=== PATIENT | female | born 1960 | race Caucasian/White ===

== ENCOUNTER 2018-04-10 14:05 | Emergency (ER) | payer OTHER, SELFPAY ==
[2018-04-10 14:14] VITALS: BP 120/78; PULSE 68; RESP 12; TEMP 36.2; O2SAT 99
--- NOTE | 2018-04-10 14:32 | PC.NURSE ---
pt has splint placed yesterday around 0200. pt removed splint (where it has dent) pt having pain. pt wants to wear a boot instead.
--- NOTE | 2018-04-10 14:53 | ED.LOWEXIN ---
HPI - Extremity Injury (Lower) General Chief Complaint: Extremity Injury, Lower Stated Complaint: BROKE LT ANKLE Time Seen by Provider: 04/10/18 14:48 Source: patient Mode of arrival: ambulatory Limitations: no limitations History of Present Illness HPI Narrative: Patient is a 57-year-old female here for evaluation of pain and swelling to her left foot. Just over 24 hr ago she fell injuring her left ankle. Was seen in outside facility was diagnosed with a left distal fibular fracture. Was placed in a removable posterior splint and crutches. She states that since then she has had swelling in the splint has been pushing into her leg. She feels much better now that the splint is off. Review of Systems Constitutional Denies fever(s) Musculoskeletal Comments: Left ankle pain and swelling Integumentary/Breasts Comments: Bruising around the left great toe Neurologic Comments: Some tingling left foot Hematologic/Lymphatic Comments: Not on anticoagulation PFSH Medical History Healthy adult (Acute) Social History marital status: lives independently: Yes Exam Initial Vital Signs Initial Vital Signs: Vital Signs Temperature 97.2 F L 04/10/18 14:14 Pulse Rate 68 04/10/18 14:14 Respiratory Rate 12 04/10/18 14:14 Blood Pressure 120/78 04/10/18 14:14 Pulse Oximetry 99 04/10/18 14:14 Const General: cooperative, healthy appearing, comfortable, well developed, well groomed and No acute distress Orientation: alert, awake and oriented x3 HENMT Head: normal to inspection and normocephalic Cardio Pulses: dorsalis pedis present on the left Skin Other: Some bruising around the left great toe Neuro Other: Sensation intact left lower extremity Extrem Other: Swelling around the left lower extremity with tenderness to palpation along the distal fibula Psych Appearance: grossly normal and well kempt Course Vital Signs - 8 hr 04/10/18 14:14 Temperature 97.2 F L Pulse Rate 68 Respiratory Rate 12 Blood Pressure 120/78 Pulse Oximetry 99 MDM - Extremity Injury (Lower) Medical Records Attestation: I reviewed the patient's medical records. MDM Narrative Medical decision making narrative: We were able to obtain the records from the outside facility which does show a isolated distal fibula fracture of the left ankle. I suspect that her discomfort is secondary to the positioning of the splint. She does have crutches. Will send home with a walking boot. She was instructed to put minimal pressure on her left lower extremity. She does have a follow-up with Orthopedics on Thursday of next week. She was given return precautions. She denied the need for any pain medication. She expressed understanding and agreement plan. Discharge Plan Departure Patient Disposition: Home Clinical Impression: Fracture of distal end of fibula Instructions: How to Use Crutches Activity Restrictions/Additional Instructions: Recommend that you use your crutches and put minimal pressure if any on your left lower extremity keep your scheduled follow-up appointment. Return to the emergency department for any new or worsening symptoms. Contact your primary care doctor for follow-up.
== END 2018-04-10 15:05 | disposition home or self-care (01) ==
PROVIDERS: Emergency Provider Emergency Medicine; PCP Internal Medicine
DX: S82.832A Other fracture of upper and lower end of left fibula, initial encounter for closed fracture (principal); W19.XXXA Unspecified fall, initial encounter
CPT/HCPCS: 99282; 99283

== ENCOUNTER 2018-09-02 16:51 | Emergency (ER) | payer OTHER, SELFPAY ==
[2018-09-02 16:59] VITALS: BP 161/87; PULSE 68; RESP 15; TEMP 37.2; O2SAT 100; BMI 24.5
--- NOTE | 2018-09-02 17:12 | ED.SOB ---
HPI - SOB/Dyspnea General Chief Complaint: Shortness of Breath/Dyspnea Stated Complaint: Congestion and cough, blood when blowing nose Time Seen by Provider: 09/02/18 17:03 Source: patient and family Mode of arrival: ambulatory Limitations: no limitations History of Present Illness 57-year-old female comes the emergency department with complaint of shortness of breath, chest congestion and cough. Patient states that she has had productive sputum with agree grayish discoloration she has not had any fevers. She denies any chest pressure. Patient denies any nausea no vomiting no other GI or urinary symptoms other than some mild diarrhea. Patient has not had any swelling in her lower extremities. She has not had any nasal pressure or pain she did note some blood when she blew her nose this morning but not any other episodes. Patient started with nasal congestion a week ago and it seemed to move to her lungs. She does smoke daily. She has been treated for lymphoma and has been in remission since 5 years prior. She takes medication for hypertension and denies other medical issues. She has had a hysterectomy but denies any other surgical care. She does not normally use inhalers or required breathing treatments in the past. Related Data Home Medications Medication Instructions Recorded Confirmed atenolol 25 mg PO DAILY 09/02/18 09/02/18 ovymxiglsgvq-nwkx-xodpj acid 1 tab PO DAILY 09/02/18 09/02/18 [Centrum] Previous Rx's Medication Instructions Recorded albuterol sulfate 2 puff INHALATION Q4-6H PRN #8 gram 09/02/18 azithromycin 250 mg PO DAILY 5 Days tab 09/02/18 prednisone 50 mg PO DAILY #3 tab 09/02/18 Review of Systems Review of Systems ROS Unobtainable: All systems reviewed & are unremarkable except as noted in HPI and below Constitutional Denies chills, Denies fever(s), Denies lethargy and Denies weakness ENT Ears, Nose, Mouth, and Throat: Reports other (Blood when blowing nose x1) Cardiovascular Denies chest pain, Denies edema, Denies leg edema, Denies dyspnea, Reports dyspnea on exertion and Denies orthopnea Respiratory Reports change in phlegm color, Reports chest congestion, Reports cough, Denies hemoptysis, Reports excessive phlegm production, Denies pain on inspiration, Denies pain with cough, Denies dyspnea, Reports dyspnea on exertion, Denies stridor and Reports wheezing Gastrointestinal Gastrointestinal: Denies abdominal pain, Denies change in bowel habits, Reports diarrhea (A couple times), Denies nausea and Denies vomiting Genitourinary Denies hematuria, Denies dysuria, Denies flank pain, Denies urinary incontinence and Denies urinary urgency Neurologic Denies weakness Allergic/Immunologic Reports wheezing [facility] Medical History (Updated 09/02/18 @ 18:01 by Ashly Lacy DO) Healthy adult (Acute) H/O: hysterectomy (Chronic) Hypertension (Chronic) Social History marital status: lives independently: Yes Smoking Status: Current every day smoker Social History marital status: lives independently: Yes Smoking Status: Current every day smoker Exam Narrative Exam Narrative: GEN: well nourished, well appearing female, alert and oriented x 3, patient appears to be in no acute distress. HEENT: Atraumatic, pupils are equal round reactive to light, extraocular movements are intact, nares are clear, TMs are clear with no fluid, there is no conjunctival pallor. Throat is clear without any exudates, erythema, tonsillar enlargement or uvular deviation HEART: Regular rate and rhythm without murmur, clicks, rubs. LUNGS:Lungs are coarse bilaterally, she has mild wheeze on the right upper chest with expiration, no rales, no crackles, chest moves symmetrically. No tachypnea or accessory muscle use. She speaks in full sentences. ABD:bowel sounds normal, soft, non-tender, no guarding, rebound, rigidity, no masses noted, no hepatosplenomegaly :No CVA tenderness MSCL: Non-tender, no muscle atrophy, muscles strength 5/5 upper and lower extremities, full range of motion, normal gait NEURO:CN 2-12 intact, sensation normal Initial Vital Signs Initial Vital Signs: Vital Signs Temperature 98.9 F 09/02/18 16:59 Pulse Rate 68 09/02/18 16:59 Respiratory Rate 15 09/02/18 16:59 Blood Pressure 161/87 H 09/02/18 16:59 Pulse Oximetry 100 09/02/18 16:59 Course Orders Ordered: ED Orders 09/02/18 17:11 XR chest 2V Stat Discontinued Medications Albuterol/Ipratropium (Duoneb) 3 ml INH NOW ONE Stop: 09/02/18 17:13 Last Admin: 09/02/18 17:34 Dose: 3 ml Vital Signs - 8 hr 09/02/18 16:59 09/02/18 17:35 09/02/18 17:50 Temperature 98.9 F Pulse Rate 68 73 75 Respiratory Rate 15 14 15 Blood Pressure 161/87 H Blood Pressure [Right Arm] 129/74 Pulse Oximetry 100 98 95 MDM - SOB/Dyspnea Imaging Data Chest x-ray: Radiologist's impression: [address] [address] XRay Report Signed Patient: JUSTIN STONER MMR#: [id number] : 9Acct:[id number] Age/Sex: 57 / FDate of Service: 09/02/18 Loc: ED Accession Number: [id number] Procedure: XR chest 2V Ordering Provider: Ashly Lacy D.O. PROCEDURE: XR CHEST 2V INDICATIONS: sob, cough, productive cifuentes/brown sputum, tob abuse TECHNIQUE: 2 views of the chest were acquired. COMPARISON: None. FINDINGS: Surgical changes and devices: None. Lungs and pleura: Lungs are clear. No pleural effusions or pneumothorax. Mediastinum: Mediastinal contours are normal. Heart size is normal. Bones and chest wall: No suspicious bony abnormalities. Soft tissues appear unremarkable. IMPRESSION: No acute cardiopulmonary disease process. Dictated by: Ashly Franklin MD, PhD on 09/02/2018 at 17:42 Approved by: Ashly Franklin MD, PhD on 09/02/2018 at 17:43 [facility] Narrative Medical decision making narrative: Patient feeling better after albuterol, given inhaler with spacer and training. Plan for steroids and short course of antibiotics. Discharge Plan Departure Patient Disposition: Home Clinical Impression: Bronchitis Discharge Date/Time: 09/02/18 18:19 Interventions: ED Discharge Assessment Last Done: 09/02/18 18:18 Instructions: DI for Acute Bronchitis Activity Restrictions/Additional Instructions: Follow-up with your primary physician in the next 2-3 days. Call for an appointment. Take steroids once daily until gone. Take antibiotics until gone. May use inhaler 1-2 puffs every 4 hours as needed for symptoms. Return to the emergency department for fevers greater than 100.4 F, new shortness of breath, chest pain, passing out, persistent vomiting, black or bloody stools or other new or concerning symptoms. Prescriptions: New prednisone 50 mg tablet 50 mg PO DAILY Qty: 3 RF: 0 azithromycin 250 mg tablet 250 mg PO DAILY 5 Days RF: 0 albuterol sulfate 90 mcg/actuation HFA aerosol inhaler 2 puff INHALATION Q4-6H PRN (Reason: shortness of breath or wheezing) Qty: 8 RF: 0 No Action atenolol 25 mg tablet 25 mg PO DAILY RF: 0 Centrum 18-400 mg-mcg Tablet 1 tab PO DAILY RF: 0 Referrals: Randi Flanagan MD [Primary Care Provider] - Stand Alone Forms: Work Release Note
--- NOTE | 2018-09-02 17:17 | ED_ITS ---
HPI - SOB/Dyspnea General Chief Complaint: Shortness of Breath/Dyspnea Stated Complaint: Congestion and cough, blood when blowing nose Time Seen by Provider: 09/02/18 17:03 Source: patient and family Mode of arrival: ambulatory Limitations: no limitations History of Present Illness 57-year-old female comes the emergency department with complaint of shortness of breath, chest congestion and cough. Patient states that she has had productive sputum with agree grayish discoloration she has not had any fevers. She denies any chest pressure. Patient denies any nausea no vomiting no other GI or urinary symptoms other than some mild diarrhea. Patient has not had any swelling in her lower extremities. She has not had any nasal pressure or pain she did note some blood when she blew her nose this morning but not any other episodes. Patient started with nasal congestion a week ago and it seemed to move to her lungs. She does smoke daily. She has been treated for lymphoma and has been in remission since 5 years prior. She takes medication for hypertension and denies other medical issues. She has had a hysterectomy but denies any other surgical care. She does not normally use inhalers or required breathing treatments in the past. Related Data Home Medications Medication Instructions Recorded Confirmed atenolol 25 mg PO DAILY 09/02/18 09/02/18 ajlgygyygoyn-dfnq-rdzjm acid 1 tab PO DAILY 09/02/18 09/02/18 [Centrum] Previous Rx's Medication Instructions Recorded albuterol sulfate 2 puff INHALATION Q4-6H PRN #8 gram 09/02/18 azithromycin 250 mg PO DAILY 5 Days tab 09/02/18 prednisone 50 mg PO DAILY #3 tab 09/02/18 Review of Systems Review of Systems ROS Unobtainable: All systems reviewed & are unremarkable except as noted in HPI and below Constitutional Denies chills, Denies fever(s), Denies lethargy and Denies weakness ENT Ears, Nose, Mouth, and Throat: Reports other (Blood when blowing nose x1) Cardiovascular Denies chest pain, Denies edema, Denies leg edema, Denies dyspnea, Reports dyspnea on exertion and Denies orthopnea Respiratory Reports change in phlegm color, Reports chest congestion, Reports cough, Denies hemoptysis, Reports excessive phlegm production, Denies pain on inspiration, Denies pain with cough, Denies dyspnea, Reports dyspnea on exertion, Denies stridor and Reports wheezing Gastrointestinal Gastrointestinal: Denies abdominal pain, Denies change in bowel habits, Reports diarrhea (A couple times), Denies nausea and Denies vomiting Genitourinary Denies hematuria, Denies dysuria, Denies flank pain, Denies urinary incontinence and Denies urinary urgency Neurologic Denies weakness Allergic/Immunologic Reports wheezing [facility] Medical History (Updated 09/02/18 @ 18:01 by Ashly Lacy DO) Healthy adult (Acute) H/O: hysterectomy (Chronic) Hypertension (Chronic) Social History marital status: lives independently: Yes Smoking Status: Current every day smoker Social History marital status: lives independently: Yes Smoking Status: Current every day smoker Exam Narrative Exam Narrative: GEN: well nourished, well appearing female, alert and oriented x 3, patient appears to be in no acute distress. HEENT: Atraumatic, pupils are equal round reactive to light, extraocular movements are intact, nares are clear, TMs are clear with no fluid, there is no conjunctival pallor. Throat is clear without any exudates, erythema, tonsillar enlargement or uvular deviation HEART: Regular rate and rhythm without murmur, clicks, rubs. LUNGS:Lungs are coarse bilaterally, she has mild wheeze on the right upper chest with expiration, no rales, no crackles, chest moves symmetrically. No tachypnea or accessory muscle use. She speaks in full sentences. ABD:bowel sounds normal, soft, non-tender, no guarding, rebound, rigidity, no masses noted, no hepatosplenomegaly :No CVA tenderness MSCL: Non-tender, no muscle atrophy, muscles strength 5/5 upper and lower extremities, full range of motion, normal gait NEURO:CN 2-12 intact, sensation normal Initial Vital Signs Initial Vital Signs: Vital Signs Temperature 98.9 F 09/02/18 16:59 Pulse Rate 68 09/02/18 16:59 Respiratory Rate 15 09/02/18 16:59 Blood Pressure 161/87 H 09/02/18 16:59 Pulse Oximetry 100 09/02/18 16:59 Course Orders Ordered: ED Orders 09/02/18 17:11 XR chest 2V Stat Discontinued Medications Albuterol/Ipratropium (Duoneb) 3 ml INH NOW ONE Stop: 09/02/18 17:13 Last Admin: 09/02/18 17:34 Dose: 3 ml Vital Signs - 8 hr 09/02/18 16:59 09/02/18 17:35 09/02/18 17:50 Temperature 98.9 F Pulse Rate 68 73 75 Respiratory Rate 15 14 15 Blood Pressure 161/87 H Blood Pressure [Right Arm] 129/74 Pulse Oximetry 100 98 95 MDM - SOB/Dyspnea Imaging Data Chest x-ray: Radiologist's impression: [address] [address] XRay Report Signed Patient: JUSTIN STONER MMR#: [id number] : 9Acct:[id number] Age/Sex: 57 / FDate of Service: 09/02/18 Loc: ED Accession Number: [id number] Procedure: XR chest 2V Ordering Provider: Ashly Lacy D.O. PROCEDURE: XR CHEST 2V INDICATIONS: sob, cough, productive cifuentes/brown sputum, tob abuse TECHNIQUE: 2 views of the chest were acquired. COMPARISON: None. FINDINGS: Surgical changes and devices: None. Lungs and pleura: Lungs are clear. No pleural effusions or pneumothorax. Mediastinum: Mediastinal contours are normal. Heart size is normal. Bones and chest wall: No suspicious bony abnormalities. Soft tissues appear unremarkable. IMPRESSION: No acute cardiopulmonary disease process. Dictated by: Ashly Franklin MD, PhD on 09/02/2018 at 17:42 Approved by: Ashly Franklin MD, PhD on 09/02/2018 at 17:43 [facility] Narrative Medical decision making narrative: Patient feeling better after albuterol, given inhaler with spacer and training. Plan for steroids and short course of antibiotics. Discharge Plan Departure Patient Disposition: Home Clinical Impression: Bronchitis Discharge Date/Time: 09/02/18 18:19 Interventions: ED Discharge Assessment Last Done: 09/02/18 18:18 Instructions: DI for Acute Bronchitis Activity Restrictions/Additional Instructions: Follow-up with your primary physician in the next 2-3 days. Call for an appointment. Take steroids once daily until gone. Take antibiotics until gone. May use inhaler 1-2 puffs every 4 hours as needed for symptoms. Return to the emergency department for fevers greater than 100.4 F, new shortness of breath, chest pain, passing out, persistent vomiting, black or bloody stools or other new or concerning symptoms. Prescriptions: New prednisone 50 mg tablet 50 mg PO DAILY Qty: 3 RF: 0 azithromycin 250 mg tablet 250 mg PO DAILY 5 Days RF: 0 albuterol sulfate 90 mcg/actuation HFA aerosol inhaler 2 puff INHALATION Q4-6H PRN (Reason: shortness of breath or wheezing) Qty: 8 RF: 0 No Action atenolol 25 mg tablet 25 mg PO DAILY RF: 0 Centrum 18-400 mg-mcg Tablet 1 tab PO DAILY RF: 0 Referrals: Randi Flanagan MD [Primary Care Provider] - Stand Alone Forms: Work Release Note
--- NOTE | 2018-09-02 17:17 | PC.NURSE ---
today with nose bleed after blowing nose. states, has been expose with pneumonia.
[2018-09-02] MEDS: ALBUTEROL/IPRATROPIUM 3 ML AMPUL INH (17:34)
[2018-09-02 17:35] VITALS: PULSE 73; RESP 14; O2SAT 98
[2018-09-02 17:50] VITALS: BP 129/74; PULSE 75; RESP 15; O2SAT 95
== END 2018-09-02 18:19 | disposition home or self-care (01) ==
PROVIDERS: Emergency Provider Emergency Medicine; PCP Internal Medicine
DX: J40 Bronchitis, not specified as acute or chronic (principal)
CPT/HCPCS: 71046; 94640; 99282; 99283

== ENCOUNTER → 2019-12-04 12:11 | Outpatient (CLI) | payer OTHER, SELFPAY | PROVIDERS: PCP Internal Medicine; Visit Provider Physician Assistant | DX: N60.09 Solitary cyst of unspecified breast (principal) | CPT/HCPCS: 87070; 87147; 87205 ==

== ENCOUNTER → 2022-03-24 13:04 | Outpatient (CLI) | payer BC, SELFPAY ==
--- NOTE | 2022-03-24 | DI.MG.S_ITS ---
BILATERAL DIGITAL DIAGNOSTIC MAMMOGRAM 3D/2D SHORT-TERM FOLLOW-UP: 03/24/2022 CLINICAL: Short term follow up of the right breast, due for bilateral imaging. Comparison is made to exams dated: 04/14/2019 mammogram and 03/07/2019 mammogram - outside location. There are scattered areas of fibroglandular density in both breasts (category b / 25%-50% glandular tissue). There is an oval equal density focal asymmetry in the right breast at 3 o'clock posterior depth. This is less prominent and decreased in size and correlates with skin marker. This was reported by the patient as sebaceous cyst that has undergone interval incision/drainage. No other significant masses, calcifications, or other findings are seen in either breast. IMPRESSION: INCOMPLETE: NEEDS ADDITIONAL IMAGING EVALUATION The oval equal density focal asymmetry in the right breast most likely is a skin lesion and is indeterminate. An ultrasound is recommended for further evaluation and is scheduled to immediately follow this examination. This exam was interpreted at Station ID: [id number]. NOTE: For mammograms, a report in lay terms will be sent to the patient. Approximately 15% of breast malignancies will not be visualized mammographically. In the management of a palpable breast mass, a negative mammogram must not discourage biopsy of a clinically suspicious lesion. Electronically Signed By: Shravan Madison M.D. aty/:03/24/2022 14:50:04 ACR BI-RADS Category 0: Incomplete 3340F
--- NOTE | 2022-03-24 | DI.US.S_ITS ---
ULTRASOUND OF RIGHT BREAST AND AXILLA: 03/24/2022 CLINICAL: Patient returns today to evaluate two focal asymmetries in the right breast. Comparison is made to exams dated: 03/24/2022 mammogram - [facility], 04/14/2019 mammogram, 03/07/2019 mammogram, and 04/14/2019 ultrasound - outside location. Color flow and real-time ultrasound of the right breast axilla were performed. Kumar scale images of the real-time examination were reviewed. There is a 0.7 cm x 0.2 cm x 0.6 cm oval cyst within the skin of the right breast at 2 o'clock 14 cm from the nipple. This oval cyst is hypoechoic. This abnormality is decreased in size and less prominent. Color flow imaging demonstrates that there is no vascularity present. There also is a stable 1.8 cm x 0.7 cm x 1.3 cm wider than tall oval mass with a circumscribed margin in the right breast at 3:30 o'clock posterior depth 8 cm from the nipple. This oval mass is hyperechoic with no posterior acoustic shadowing or enhancement. Color flow imaging demonstrates that there is an adjacent vascularity. No significant abnormalities were seen sonographically in the right axilla. IMPRESSION: BENIGN There is no sonographic evidence of malignancy. The 0.7 cm x 0.2 cm x 0.6 cm oval cyst within the skin of the right breast at 2 o'clock is consistent with a sebaceous cyst and is benign. The 1.8 cm x 0.7 cm x 1.3 cm wider than tall oval mass in the right breast at 3:30 o'clock posterior depth has remained stable for over two years and is benign. It most likely is a lipoma. A 1 year screening mammogram is recommended. Findings and recommendations were conveyed to the patient during today's evaluation. This exam was interpreted at Station ID: [id number]. Electronically Signed By: Shravan Madison M.D. at/:03/24/2022 14:56:19 letter sent: Normal Exam Ultrasound BI-RADS: 2 Benign
== END ==
PROVIDERS: PCP Nurse Practitioner; Referring Provider Nurse Practitioner; Visit Provider Nurse Practitioner
DX: R92.8 Other abnormal and inconclusive findings on diagnostic imaging of breast (principal); N60.01 Solitary cyst of right breast; N63.14 Unspecified lump in the right breast, lower inner quadrant
CPT/HCPCS: 76642; 77066; G0279

== ENCOUNTER 2022-08-15 14:08 | Emergency (ER) | payer OTHER, SELFPAY ==
[2022-08-15 14:10] VITALS: BP 190/91; PULSE 84; RESP 18; TEMP 36.6; O2SAT 98; BMI 28.3
--- NOTE | 2022-08-15 14:20 | DI.RAD.S_ITS ---
PROCEDURE: XR RIBS LT MIN 3V W CXR1V INDICATIONS: fall, L side pain TECHNIQUE: 2 views of the left ribs were acquired, along with a single view chest. COMPARISON: None. FINDINGS: Surgical changes and devices: None. Bones and chest wall: No dislocations but there is, on the steep oblique view, a left-sided slightly angulated lateral 6th rib fracture. No suspicious bony lesions. Overlying soft tissues appear unremarkable. Lungs and pleura: No pleural effusions or pneumothorax. Lungs appear clear. Mediastinum: Mediastinal contours appear normal. Heart size is normal. IMPRESSION: Lateral left 6th rib fracture, seen on one view only, without pneumothorax. Dictated by: Mahad Patrick M.D. on 08/15/2022 at 15:00 Approved by: Mahad Patrick M.D. on 08/15/2022 at 15:02
--- NOTE | 2022-08-15 14:30 | ED_ITS ---
HPI - Fall <Minna Rojo PA-C - Last Filed: 08/15/22 15:47> General Chief Complaint: Fall Stated Complaint: tripped at work and fell on a brick Time Seen by Provider: 08/15/22 14:18 Source: patient Mode of arrival: Ambulatory History of Present Illness HPI Narrative: 61-year-old woman history of reactive airway and hypertension presents with concern for left rib pain and left side pain has been persistent since she had a fall on the 06 of August. Patient states she was at work and there was a brick on the ground that she did not see where she tripped over she fell down onto her left side hitting her left ribs and her left hip. 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 She states that she came in today because she feels like the pain is not getting better if anything it has gotten somewhat worse recently. She has not previously been seen for this. She presents with L and I paperwork. Patient states she can not swallow pills and she has not been taking anything for pain including Tylenol or ibuprofen. Denies shortness of breath, severe pain, blood in her urine abdominal pain, numbness or tingling or any other symptoms. Related Data Home Medications Medication Instructions Recorded Confirmed atenolol 25 mg tablet 25 mg PO DAILY 09/02/18 09/02/18 multivitamin-ferrous 1 tab PO DAILY 09/02/18 09/02/18 fumarate-folic acid 18 mg-400 mcg tablet (Centrum) Previous Rx's Medication Instructions Recorded albuterol sulfate 90 mcg/actuation 2 puff inhalation Q4-6H PRN 09/02/18 aerosol inhaler shortness of breath or wheezing #8 grams prednisone 50 mg tablet 50 mg PO DAILY #3 tabs 09/02/18 mupirocin 2 % topical ointment 1 applic topical TID #30 grams 12/04/19 baclofen 10 mg tablet 10 mg PO TID muscle spasm/rib 08/15/22 fracture #21 tabs lidocaine 5 % topical ointment 1 applic topical BID 10 days #30 08/15/22 grams Allergies Allergy/AdvReac Type Severity Reaction Status Date / Time adhesive tape Allergy Rash Verified 08/15/22 14:14 Review of Systems <Minna Rojo PA-C - Last Filed: 08/15/22 15:47> Review of Systems Narrative: See HPI Patient History <Minna Rojo PA-C - Last Filed: 08/15/22 15:47> Medical History Epidermoid cyst of skin of chest Healthy adult Hypertension Surgical History H/O: hysterectomy Social History marital status: lives independently: Yes Smoking Status: Current every day smoker Smoking Status: Current every day smoker tobacco type: cigarettes Substance Use Type: does not use Exam <Minna Rojo PA-C - Last Filed: 08/15/22 15:47> Narrative Exam Narrative: GENERAL: 61 year old patient appears stated age. Well-developed patient, in mild distress. HEAD: Atraumatic. Normocephalic. EYES: Pupils equal round and reactive. Extraocular motions intact. No scleral icterus. No injection or drainage. ENT: Nose without bleeding, purulent drainage. Airway patent. NECK: Trachea midline. Non tender CARDIOVASCULAR: Regular rate and rhythm without murmurs, gallops, or rubs. RESPIRATORY: Clear to auscultation. Breath sounds equal bilaterally. No wheezes, rales, or rhonchi. EXTREMITIES: No edema or joint tenderness. BACK/RIBS: There is no midline spinous process tenderness deformity or step- offs, patient is very tender with palpation of the posterior and lateral ribs at T4 through T6 level. No bony deformity noted. Otherwise Nontender without deformity or crepitance. No flank tenderness. NEURO: AOx3. SKIN: No rash or erythema of visible areas Initial Vital Signs Initial Vital Signs: Vital Signs Temperature 97.8 F 08/15/22 14:10 Pulse Rate 84 08/15/22 14:10 Respiratory Rate 18 08/15/22 14:10 Blood Pressure 190/91 H 08/15/22 14:10 Pulse Oximetry 98 08/15/22 14:10 Oxygen Delivery Method Room Air 08/15/22 14:10 <Ashly Lacy DO - Last Filed: 08/15/22 19:20> Initial Vital Signs Initial Vital Signs: Vital Signs Temperature 97.8 F 08/15/22 14:10 Pulse Rate 84 08/15/22 14:10 Respiratory Rate 18 08/15/22 14:10 Blood Pressure 190/91 H 08/15/22 14:10 Pulse Oximetry 98 08/15/22 14:10 Oxygen Delivery Method Room Air 08/15/22 14:10 Course <Minna Rojo PA-C - Last Filed: 08/15/22 15:47> Orders Ordered: ED Orders 08/15/22 14:20 XR ribs LT min 3V w CXR1V Stat Vital Signs Vital signs: Vital Signs - 8 hr 08/15/22 14:10 Temperature 97.8 F Pulse Rate 84 Respiratory Rate 18 Blood Pressure 190/91 H Pulse Oximetry 98 Oxygen Delivery Method Room Air <Ashly Lacy DO - Last Filed: 08/15/22 19:20> Orders Ordered: ED Orders 08/15/22 14:20 XR ribs LT min 3V w CXR1V Stat Vital Signs Vital signs: Vital Signs - 8 hr 08/15/22 14:10 Temperature 97.8 F Pulse Rate 84 Respiratory Rate 18 Blood Pressure 190/91 H Pulse Oximetry 98 Oxygen Delivery Method Room Air MDM - Fall <Minna Rojo PA-C - Last Filed: 08/15/22 15:47> Differential Diagnosis Differential diagnosis: Likely other (Rib fracture, intercostal muscle strain, sprain/strain) Medical Records Attestation: I reviewed the patient's medical records. Imaging Data Chest x-ray: Radiologist's Impression: [address] [address] XRay Report Signed Patient: Brittany Boswell MR#: [id number] : 1960 Acct:[id number] Age/Sex: 61 / F Date of Service: 08/15/22 Loc: ED Accession Number: [id number] ?? Procedure: XR ribs LT min 3V w CXR1V Ordering Provider: Minna Rojo P.A-C PROCEDURE:? XR RIBS LT MIN 3V W CXR1V ? INDICATIONS:? fall, L side pain ? TECHNIQUE:? 2 views of the left ribs were acquired, along with a single view chest.? ? COMPARISON:? None. ? FINDINGS:? ? Surgical changes and devices:? None.? ? Bones and chest wall:? No dislocations but there is, on the steep oblique view, a left-sided slightly angulated lateral 6th rib fracture.? No suspicious bony lesions.? Overlying soft tissues appear unremarkable.? ? Lungs and pleura:? No pleural effusions or pneumothorax.? Lungs appear clear.? ? Mediastinum:? Mediastinal contours appear normal.? Heart size is normal.? ? IMPRESSION:? Lateral left 6th rib fracture, seen on one view only, without pneumothorax. ? ? Dictated by: Mahad Patrick M.D. on 08/15/2022 at 15:00 ? ? Approved by: Mahad Patrick M.D. on 08/15/2022 at 15:02?? MDM Narrative Medical decision making narrative: Some well-appearing 61-year-old woman who presents with concern for left rib pain she sustained a fall approximately 8 days ago at work and presents with L and I paperwork. Paperwork is completed today during patient visit including activity prescription form claim number be [id number]. Patient does have tenderness of her left posterior ribs at T4 through 6 and returns positive on x- ray for a left lateral slightly displaced rib fracture with no evidence of pneu mothorax. Patient has not had shortness of breath has been continuing to work and do her job but has had pain she is a hairdresser and has difficulty performing her duties when she has to lift up her arm on the left side. Work note today for the next 4 days so the patient can rest and recuperate, prescription for topical lidocaine as well as baclofen. Return precautions provided, follow-up plan discussed, all questions answered. Discharge Plan Departure Patient Disposition: Home Clinical Impression: Left rib fracture, Intercostal muscle strain, Work related injury Activity Restrictions/Additional Instructions: *You have been diagnosed with [fracture of your left 6th rib] *What to do: *Please continue to take your regular medications as directed. [ 2] New medication prescriptions sent to your pharmacy: [Baclofen/Lidocaine] [ ] New medication written as a paper prescription [ ] No new medications given *Please follow up with your primary care provider in 2-3 days, call for an appointment. Let them know you were seen in the Emergency Department and that we ask that you be seen in follow up. We will electronically transmit a record of today's note if your PCP is in our system. I know you prefer not to take pills and it may need to be ground up in order for you to take it since you do not swallow pills but I did prescribe some muscle relaxers for you for your pain and tightness. If you do take these please do not take them with any alcohol or before driving or operating any equipment. I am providing you with a work note for the next 4 days so you can get some rest and recover from your rib fracture. It is quite common for your pain to increase on day 7-10 after getting a rib fracture and I suspect that this is what made her come in today with it worsening. You may have some persistent discomfort for some time but do recommend Tylenol ibuprofen as well as the muscle relaxer you can also try heat and I have prescribed some lidocaine patches as well. *If you do not have a primary care provider please contact the [facility] Resource line at [phone]. They will ask some questions about your medical history and help get you set up with a doctor in the community. *Return to Emergency Department if you should have any new, worsening or concerning symptoms, such as [fever greater than 101 F, shaking chills, worsening pain, persistent vomiting or other bothersome symptoms] Prescriptions: New baclofen 10 mg tablet 10 mg PO TID Qty: 21 0RF lidocaine 5 % ointment 1 applic topical BID 10 Days Qty: 30 0RF No Action mupirocin 2 % ointment 1 applic TOP TID Qty: 30 0RF atenolol 25 mg tablet 25 mg PO DAILY Centrum 18-400 mg-mcg Tablet 1 tab PO DAILY prednisone 50 mg tablet 50 mg PO DAILY Qty: 3 0RF albuterol sulfate 90 mcg/actuation HFA aerosol inhaler 2 puff INHALATION Q4-6H PRN (Reason: shortness of breath or wheezing) Qty: 8 0RF Referrals: Julita Sethi ARNP [Primary Care Provider] - Stand Alone Forms: Patient Portal/API, Work Release Note <Ashly Lacy DO - Last Filed: 08/15/22 19:20> Cosign ED Attending Cosrickyature Attestation: I was immediately available in the department for consultation. Documentation has been reviewed.
== END 2022-08-15 15:45 | disposition home or self-care (01) ==
PROVIDERS: Emergency Provider Student in an Organized Health Care Education/Training Program; PCP Nurse Practitioner
DX: S22.32XA Fracture of one rib, left side, initial encounter for closed fracture (principal); S29.011A Strain of muscle and tendon of front wall of thorax, initial encounter; W01.198A Fall on same level from slipping, tripping and stumbling with subsequent striking against other object, initial encounter; Y99.0 Civilian activity done for income or pay
CPT/HCPCS: 71101; 99283

== ENCOUNTER → 2023-01-31 15:43 | Outpatient (CLI) | payer OTHER, SELFPAY ==
--- NOTE | 2023-01-31 15:48 | DI.RAD.S_ITS ---
PROCEDURE: XR HUMERUS RT 2V INDICATIONS: Shoulder immobility/pain TECHNIQUE: 3 views of the humerus were acquired. COMPARISON: None. FINDINGS: Bones: No fractures or dislocations. No suspicious bony lesions. Calcified intra-articular free body the glenohumeral joint measuring 1.4 centimeters. Soft tissues: No suspicious soft tissue calcifications. IMPRESSION: No acute bony abnormality. Dictated by: Chriss Dumont M.D. on 01/31/2023 at 15:19 Approved by: Chriss Dumont M.D. on 01/31/2023 at 15:20
--- NOTE | 2023-01-31 15:48 | DI.RAD.S_ITS ---
PROCEDURE: XR ELBOW RT MIN 3V INDICATIONS: Shoulder immobility/pain TECHNIQUE: 3 views of the elbow were acquired. COMPARISON: None. FINDINGS: Bones: No fractures or dislocations. No suspicious bony lesions. Soft tissues: No elbow joint effusion. No suspicious soft tissue calcifications. IMPRESSION: No acute bony abnormality or significant joint effusion. Dictated by: Chriss Dumont M.D. on 01/31/2023 at 15:18 Approved by: Chriss Dumont M.D. on 01/31/2023 at 15:19
--- NOTE | 2023-01-31 15:48 | DI.RAD.S_ITS ---
PROCEDURE: XR SHOULDER RT MIN 2V INDICATIONS: Shoulder immobility/pain TECHNIQUE: 4 views of the shoulder were acquired. COMPARISON: None. FINDINGS: Bones: No fractures or dislocations. No suspicious bony lesions. Visualized ribs appear intact. Intra-articular free body along the posterior superior glenohumeral joint measuring 1.4 centimeters. Soft tissues: No suspicious soft tissue calcifications. IMPRESSION: Mild osteoarthritic changes of the shoulder with large intra-articular calcified free body measuring 1.4 centimeters Dictated by: Chriss Dumont M.D. on 01/31/2023 at 15:20 Approved by: Chriss Dumont M.D. on 01/31/2023 at 15:21
== END ==
PROVIDERS: PCP Nurse Practitioner; Referring Provider Nurse Practitioner Family; Visit Provider Nurse Practitioner Family
DX: M25.521 Pain in right elbow (principal); M79.601 Pain in right arm; M25.511 Pain in right shoulder; M25.619 Stiffness of unspecified shoulder, not elsewhere classified
CPT/HCPCS: 73030; 73060; 73080

== ENCOUNTER 2024-06-03 11:44 | Emergency (ER) | payer OTHER, SELFPAY ==
[2024-06-03 12:01] VITALS: BP 163/90; PULSE 82; RESP 14; TEMP 36.9; O2SAT 97; BMI 25.4
--- NOTE | 2024-06-03 12:09 | DI.RAD.S_ITS ---
PROCEDURE: XR CHEST 2V INDICATIONS: cough is getting worse TECHNIQUE: 2 views of the chest were acquired. COMPARISON: [facility], CR, XR CHEST 2V, 09/02/2018, 17:17. FINDINGS: Surgical changes and devices: None. Lungs and pleura: Lungs are clear. No pleural effusions or pneumothorax. Mediastinum: Tortuous thoracic aorta. Heart size is normal. Bones and chest wall: No suspicious bony abnormalities. Soft tissues appear unremarkable. IMPRESSION: No focal infiltrate, pleural effusion or pneumothorax. Dictated by: Jose A Davis M.D. on 06/03/2024 at 12:35 Approved by: Jose A Davis M.D. on 06/03/2024 at 12:36
--- NOTE | 2024-06-03 14:40 | ED_ITS ---
HPI - URI/Sore Throat <Jennifer Jimenez PA-C - Last Filed: 06/03/24 17:13> General Chief Complaint: Upper Respiratory Symptoms Stated Complaint: bronchitis, pneumonia Time Seen by Provider: 06/03/24 14:07 Source: patient Mode of arrival: Family Vehicle History of Present Illness HPI Narrative: Ms. Boswell is a pleasant 63-year-old female with a past medical history of lymphoma in remission, hypertension, hysterectomy, daily smoking who presents to the emergency department for cough x6 weeks. Patient states she was started on prednisone and Mucinex 3 days ago but her symptoms have only been getting worse. States she has a constant dry cough that is worse at night. She has been experiencing wheezing at night. Symptoms started with cold-like symptoms about 6 weeks ago. No fevers recently. She is concerned for bronchitis or pneumonia. Denies chest pain, shortness of breath, abdominal pain, vomiting, diarrhea, lower extremity swelling, orthopnea, nocturnal dyspnea. She is unable to take pills. Related Data Home Medications Medication Instructions Recorded Confirmed atenolol 25 mg tablet 25 mg PO DAILY 09/02/18 01/31/23 multivitamin-ferrous 1 tab PO DAILY 09/02/18 01/31/23 fumarate-folic acid 18 mg-400 mcg tablet (Centrum) Previous Rx's Medication Instructions Recorded albuterol sulfate 90 mcg/actuation 2 puff inhalation Q4-6H PRN 09/02/18 aerosol inhaler shortness of breath or wheezing #8 grams prednisone 50 mg tablet 50 mg PO DAILY #3 tabs 09/02/18 mupirocin 2 % topical ointment 1 applic topical TID #30 grams 12/04/19 baclofen 10 mg tablet 10 mg PO TID muscle spasm/rib 08/15/22 fracture #21 tabs albuterol sulfate 90 mcg/actuation 1 inh inhalation Q6H PRN shortness 06/03/24 aerosol inhaler of breath or wheezing #6.7 grams doxycycline hyclate 100 mg capsule 100 mg PO BID 5 days #10 caps 06/03/24 Allergies Allergy/AdvReac Type Severity Reaction Status Date / Time adhesive tape Allergy Rash Verified 06/03/24 12:09 Review of Systems <Jennifer Jimenez PA-C - Last Filed: 06/03/24 17:13> Review of Systems ROS Unobtainable: All systems reviewed & are unremarkable except as noted in HPI and below Patient History <Jennifer Jimenez PA-C - Last Filed: 06/03/24 17:13> Medical History Epidermoid cyst of skin of chest Hypertension Healthy adult Surgical History H/O: hysterectomy Social History marital status: lives independently: Yes Smoking Status: Current every day smoker Smoking Status: Current every day smoker tobacco type: cigarettes Exam <Jennifer Jimenez PA-C - Last Filed: 06/03/24 17:13> Narrative Exam Narrative: GENERAL: 63 year old patient appears stated age. Well-developed patient, in no acute distress. HEAD: Atraumatic. Normocephalic. NECK: Trachea midline. Cervical ROM intact. CARDIOVASCULAR: Regular rate and rhythm. RESPIRATORY: ?Nonlabored respirations. ?Speaking in clear, full sentences. ?Clear to auscultation. Breath sounds equal bilaterally. No wheezes, rales, or rhonchi. ? EXTREMITIES: No edema or joint tenderness. NEURO: AOx3. ?Clear speech. ?Moves all 4 extremities appropriately. SKIN: No rash or erythema of visible areas Initial Vital Signs Initial Vital Signs: Vital Signs Temperature 98.4 F 06/03/24 12:01 Pulse Rate 82 06/03/24 12:01 Respiratory Rate 14 06/03/24 12:01 Blood Pressure 163/90 H 06/03/24 12:01 Pulse Oximetry 97 06/03/24 12:01 Oxygen Delivery Method Room Air 06/03/24 12:01 <Jomar Moulton MD - Last Filed: 06/03/24 20:43> Initial Vital Signs Initial Vital Signs: Vital Signs Temperature 98.4 F 06/03/24 12:01 Pulse Rate 82 06/03/24 12:01 Respiratory Rate 14 06/03/24 12:01 Blood Pressure 163/90 H 06/03/24 12:01 Pulse Oximetry 97 06/03/24 12:01 Oxygen Delivery Method Room Air 06/03/24 12:01 Course <Jennifer Jimenez PA-C - Last Filed: 06/03/24 17:13> Orders Ordered: ED Orders 06/03/24 12:09 XR chest 2V Stat Vital Signs Vital signs: Vital Signs - 8 hr 06/03/24 14:49 Pulse Rate 60 Respiratory Rate 16 Blood Pressure 156/74 H Pulse Oximetry 98 Oxygen Delivery Method Room Air <Jomar Moulton MD - Last Filed: 06/03/24 20:43> Orders Ordered: ED Orders 06/03/24 12:09 XR chest 2V Stat Vital Signs Vital signs: Vital Signs - 8 hr 06/03/24 14:49 Pulse Rate 60 Respiratory Rate 16 Blood Pressure 156/74 H Pulse Oximetry 98 Oxygen Delivery Method Room Air MDM - URI/Sore Throat <Jennifer Jimenez PA-C - Last Filed: 06/03/24 17:13> Medical Records Attestation: I reviewed the patient's medical records. Imaging Data Chest x-ray: Radiologist's Impression: PROCEDURE: XR CHEST 2V INDICATIONS: cough is getting worse TECHNIQUE: 2 views of the chest were acquired. COMPARISON: [facility], , XR CHEST 2V, 09/02/2018, 17:17. FINDINGS: Surgical changes and devices: None. Lungs and pleura: Lungs are clear. No pleural effusions or pneumothorax. Mediastinum: Tortuous thoracic aorta. Heart size is normal. Bones and chest wall: No suspicious bony abnormalities. Soft tissues appear unremarkable. IMPRESSION: No focal infiltrate, pleural effusion or pneumothorax. [facility] Narrative Medical decision making narrative: 63-year-old female with a past medical history of lymphoma in remission, hyper tension, hysterectomy, daily smoking who presents to the emergency department for cough x6 weeks. Differential diagnosis includes but is not limited to bronchitis, pneumonia, viral syndrome, COPD exacerbation, reactive airway disease, etc. On exam patient is in no acute distress, nontoxic appearing, afebrile, not tachycardic, no lower extremity edema, lungs clear to auscultation, no wheezing present. She has been having 6 weeks of a worsening cough and wheezing. Denies a history of COPD however she has smoked cigarettes her entire life and still does currently. X-ray was obtained reveals no focal infiltrate. Concern for COPD exacerbation/atypical pneumonia, her symptoms have not improved with steroid alone so we will add on albuterol and doxycycline. Advised patient follow up with primary care doctor for further evaluation and return to the emergency department for any new or worsening symptoms. She has no issues swallowing however is unable to take pills, confirmed with pharmacy doxycycline can be put into applesauce and taken that way. Both her and her are agreeable to plan, she is stable for discharge home. Discharge Plan Departure Patient Disposition: Home Clinical Impression: Bronchitis Instructions: DI for Acute Bronchitis Activity Restrictions/Additional Instructions: Thank you for coming to the emergency department. Today you were evaluated for a cough x6 weeks. Your chest x-ray was reassuring. Based on your symptoms I am treating you with an antibiotic, an inhaler, and I want you to complete the full course of steroids for concern of bronchitis given your history of smoking. Please follow up with the primary care doctor and return to the emergency department if develop any new or worsening symptoms such as chest pain, difficulty breathing or other concerns. Please follow up with your primary care doctor within the next 2-3 days for ER follow-up. (If you do not have a PCP you can call [phone]. ?to schedule an appointment with an [facility] Primary Care Provider) IF YOU DEVELOP ANY NEW OR WORSENING SYMPTOMS, RETURN TO THE ER! Please read the attached instructions, they highlight more specific treatments and interventions for you at home. Thank you for letting me participate in your care, Jennifer Jimenez PA-C Prescriptions: New doxycycline hyclate 100 mg capsule 100 mg PO BID 5 Days Qty: 10 0RF albuterol sulfate 90 mcg/actuation HFA aerosol inhaler 1 inh inhalation Q6H PRN (Reason: shortness of breath or wheezing) Qty: 6.7 0RF No Action mupirocin 2 % ointment 1 applic TOP TID Qty: 30 0RF baclofen 10 mg tablet 10 mg PO TID Qty: 21 0RF atenolol 25 mg tablet 25 mg PO DAILY Centrum 18-400 mg-mcg Tablet 1 tab PO DAILY prednisone 50 mg tablet 50 mg PO DAILY Qty: 3 0RF albuterol sulfate 90 mcg/actuation HFA aerosol inhaler 2 puff INHALATION Q4-6H PRN (Reason: shortness of breath or wheezing) Qty: 8 0RF Referrals: Julita Sethi ARNP [Primary Care Provider] - Stand Alone Forms: Patient Portal/API/Survey ED Sign-out <Jomar Moulton MD - Last Filed: 06/03/24 20:43> Cosign ED Attending Cosignature Attestation: I was immediately available in the department for consultation. This documentation has been reviewed and I agree with assessment and plan. Supervised by Jomar Moulton MD
[2024-06-03 14:49] VITALS: BP 156/74; PULSE 60; RESP 16; O2SAT 98
== END 2024-06-03 14:58 | disposition home or self-care (01) ==
PROVIDERS: Emergency Provider Physician Assistant; PCP Nurse Practitioner
DX: J20.9 Acute bronchitis, unspecified (principal); Z85.72 Personal history of non-Hodgkin lymphomas
CPT/HCPCS: 71046; 99281; 99283

== ENCOUNTER → 2024-06-18 16:26 | Outpatient (CLI) | payer OTHER, SELFPAY ==
[2024-06-18 17:10] LABS: Influenza A - CEPHEID Flu A NEGATIVE (NEGATIVE); Influenza B - CEPHEID Flu B NEGATIVE (NEGATIVE); Respiratory Syncytial Virus Negative (Negative)
[2024-06-18 17:24] LABS: COVID-19 CEPHEID 4-PLEX PCR Negative (Negative)
== END ==
PROVIDERS: PCP Nurse Practitioner; Visit Provider Nurse Practitioner Family
DX: R05.1 Acute cough (principal)
CPT/HCPCS: 0241U